=== PATIENT | male | born 2000 | race Two or more races ===

== ENCOUNTER 2021-08-21 18:45 | Emergency (ER) | payer MEDICAID, OTHER ==
[~2021-08-21] VITALS: Ht 177.8 cm; Wt 72.6 kg
[2021-08-21 18:51] VITALS: BP 133/86
== END 2021-08-21 21:45 | disposition left against medical advice (07) ==
LOC: ER 18:48
DX: R30.9 Painful micturition, unspecified (principal); Z53.21 Procedure and treatment not carried out due to patient leaving prior to being seen by health care provider